=== PATIENT | female | born 2000 | race Caucasian/White ===

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

== ENCOUNTER 2022-11-07 10:33 | Emergency (ER) | payer OTHER, SELFPAY ==
[2022-11-07 10:52] VITALS: BP 99/66; PULSE 95; RESP 16; TEMP 37.8; O2SAT 99
--- NOTE | 2022-11-07 11:25 | ED.URI ---
HPI - URI/Sore Throat General Chief Complaint: Upper Respiratory Infection Stated Complaint: URI Source: patient and RN notes reviewed History of Present Illness HPI Narrative: 22 yo F presents to urgent care with complaints of a sore throat when she swallows and slight IRIZARRY. Pt reports some soreness to her anterior neck and points to lymphnode region. Pt states her symptoms started yesterday and she took an OTC cold/allergy medicine last night. Pt states she woke up this morning with swollen lips. Pt denies any fevers, chills, vomiting, chest pain, SOB, ear pain, or congestion. Pt states her mom has similiar symptoms at home and was dx with an ear infection yesterday. Pt denies any new meds, foods, or drinks. Denies any rash or hives or other oral swelling. Related Data Home Medications Medication Instructions Recorded Confirmed norethindrone 1 mg-ethinyl tablet 11/07/22 estradiol 35 mcg (21) tablet (Nortrel) Allergies Allergy/AdvReac Type Severity Reaction Status Date / Time No Known Allergies Allergy Mild Verified 11/07/22 10:50 Review of Systems Review of Systems: Pertinent positives and pertinent negatives per HPI. PMFSH Comments At the time of my signature, I reviewed and agree with the nursing past medical, surgical, social, and family history. There is no relevant family history pertinent to the patient complaint. Exam Narrative: GENERAL: This is a well-nourished, well-developed patient, in no apparent distress. HEAD: normocephalic, atraumatic. EYES: Sclera clear/white. Vision is grossly intact. EARS: External ears normal, auditory canals clear and without drainage, TMs normal without perforation. Hearing grossly intact. MOUTH: upper and lower lips mildly edematous. No tongue swelling. NOSE: External nose normal with no obvious nasal discharge, nares without redness, no rhinorrhea. THROAT: Mucous membranes moist, posterior pharynx clear. NECK: Neck supple, non-tender without lymphadenopathy, masses or thyromegaly. CARDIOVASCULAR: Regular rate and rhythm without murmurs, gallops, or rubs. RESPIRATORY: Clear to auscultation. Breath sounds equal bilaterally. No wheezes, rales, or rhonchi. SKIN: warm, intact with no suspicious lesions or rash, good texture and turgor. NEURO: awake, alert, and oriented to person, place and time. There were no obvious focal neurologic abnormalities. Course Course Level of Care: Express Care Visit Vital Signs Vital signs: Vital Signs Temperature 100.0 F H 11/07/22 10:52 Pulse Rate 95 11/07/22 10:52 Respiratory Rate 16 11/07/22 10:52 Blood Pressure 99/66 L 11/07/22 10:52 Pulse Oximetry 99 11/07/22 10:52 Oxygen Delivery Room Air 11/07/22 10:52 Temperature 100.0 F H 11/07/22 10:52 Pulse Rate 95 11/07/22 10:52 Respiratory Rate 16 11/07/22 10:52 Blood Pressure 99/66 L 11/07/22 10:52 Pulse Oximetry 99 11/07/22 10:52 Oxygen Delivery Room Air 11/07/22 10:52 reviewed. MDM - URI/Sore Throat MDM Narrative Medical decision making narrative: Viral illness may last between 7-21 days; antibiotics do not cure viral illness and are NOT recommended at this time. Also, recommend symptomatic treatment includes: rest, fluids, and increase humidity of the air at home. Recommend Acetaminophen as directed on the bottle to reduce fever, pain, headache. Please schedule a follow-up visit with your personal physician for further evaluation and treatment within 3-5days. If your symptoms persist, change or worsen significantly before you can contact your personal physician then please, without delay, go to the emergency department for further evaluation. if you develop any new or worsening symptoms go to the ER. Differential Diagnosis Differential diagnosis: Likely upper respiratory infection, otitis media and pharyngitis Lab Data Attestation: I reviewed the patient's lab results. Critical Care Time Critical Care Time Critical C
== END 2022-11-07 11:50 | disposition home or self-care (01) ==
PROVIDERS: Emergency Provider Nurse Practitioner Family
DX: B34.9 Viral infection, unspecified (principal); T78.40XA Allergy, unspecified, initial encounter
CPT/HCPCS: 87081; 87880; 99213; G0463

== ENCOUNTER 2023-02-03 11:26 | Emergency (ER) | payer OTHER, SELFPAY ==
[2023-02-03 11:37] VITALS: BP 123/79; PULSE 108; RESP 16; TEMP 37.3; O2SAT 100
--- NOTE | 2023-02-03 12:03 | ED.ALLEREA ---
HPI - Allergic Reaction General Chief complaint: Allergic Reaction Stated complaint: Headache/Lips Swelling/Sore Throat Time Seen by Provider: 02/03/23 12:03 Source: patient Mode of arrival: ambulatory Limitations: no limitations History of Present Illness HPI narrative: 22-year-old female presents with complaint of sore throat, headache, lip swelling since yesterday. Patient works at [employer]. reports no contact with any new food, chemicals. No new clothes or products for her. Reports similar symptoms in October. Took prednisone and symptoms resolved. Has not taken any Benadryl to treat lip swelling. No difficulty swallowing or breathing. Denies itching. Recently reports some seasonal allergy symptoms but otherwise fine. Does not take daily allergy medicines. All systems reviewed and negative except as noted above. Related Data Home Medications Medication Instructions Recorded Confirmed norethindrone 1 mg-ethinyl tablet 11/07/22 estradiol 35 mcg (21) tablet (Nortrel) Allergies Allergy/AdvReac Type Severity Reaction Status Date / Time No Known Allergies Allergy Mild Verified 02/03/23 11:37 Review of Systems Review of Systems: CONSTITUTIONAL: Denies fever, chills, or sweats. EYES: Denies visual changes, redness, or discharge. ENT: Denies rhinorrhea, congestion. Reports sore throat, lip swelling. Denies otalgia. CARDIOVASCULAR: Denies chest pain, palpitations, or edema. RESPIRATORY: Denies cough or dyspnea. GASTROINTESTINAL: Denies abdominal pain, nausea, vomiting, or diarrhea. GENITOURINARY: Denies dysuria or hematuria. SKIN: Denies rash or itching. MUSCULOSKELETAL: Denies back pain, joint pain, or myalgia. NEUROLOGIC: reports headache. Denies numbness, or weakness. PSYCHIATRIC: Denies anxiety or depression. All other systems reviewed are negative, except as documented in HPI. PMFSH Comments At time of signature, agree with nursing past medical, surgical, social and family history. There is no relevant family history pertinent to the presenting complaint. Exam Narrative: GENERAL: This is a well-nourished, well-developed patient, in no apparent distress. HEAD: normocephalic, atraumatic. EYES: PERRL. Sclera clear/white. Vision is grossly intact. EARS: External ears normal, auditory canals clear and without drainage, Fluid bilateral TMs without erythema or perforation. NOSE: External nose normal with no obvious nasal discharge, nares without redness, no rhinorrhea. THROAT: Mucous membranes moist, erythema to posterior pharynx with clear postnasal drainage. MOUTH: Upper and lower lip swollen Without rash. NECK: Neck supple, non-tender without lymphadenopathy, masses or thyromegaly. CARDIOVASCULAR: Regular rate and rhythm without murmurs, gallops, or rubs. RESPIRATORY: Clear to auscultation. Breath sounds equal bilaterally. No wheezes, rales, or rhonchi. SKIN: warm, Dry, intact with no suspicious lesions or rash, good texture and turgor. NEURO: awake, alert, and oriented to person, place and time. There were no obvious focal neurologic abnormalities. EXTREMITIES: No joint tenderness, effusion, or edema noted. Course Course Level of Care: Express Care Visit Vital Signs Vital signs: Vital Signs Temperature 37.3 C 02/03/23 11:37 Pulse Rate 108 H 02/03/23 11:37 Respiratory Rate 16 02/03/23 11:37 Blood Pressure 123/79 02/03/23 11:37 Pulse Oximetry 100 02/03/23 11:37 Oxygen Delivery Room Air 02/03/23 11:37 Temperature 37.3 C 02/03/23 11:37 Pulse Rate 108 H 02/03/23 11:37 Respiratory Rate 16 02/03/23 11:37 Blood Pressure 123/79 02/03/23 11:37 Pulse Oximetry 100 02/03/23 11:37 Oxygen Delivery Room Air 02/03/23 11:37 reviewed MDM - Allergic Reaction MDM Narrative Medical decision making narrative: Patient is aware of diagnosis, understands and agrees to treatment plan. Anticipatory guidance given. Patient agrees to follow-up
== END 2023-02-03 12:18 | disposition home or self-care (01) ==
PROVIDERS: Emergency Provider Nurse Practitioner Family
DX: J30.2 Other seasonal allergic rhinitis (principal); R22.0 Localized swelling, mass and lump, head
CPT/HCPCS: 87081; 87880; 99213; G0463

== ENCOUNTER 2023-05-23 08:26 | Emergency (ER) | payer OTHER, SELFPAY ==
--- NOTE | 2023-05-23 09:01 | ED.FEMALEGU ---
HPI - Female Genitourinary General Chief complaint: Urogenital-Female Stated complaint: Urinary issue Time Seen by Provider: 05/23/23 09:15 Source: patient Mode of arrival: ambulatory Limitations: no limitations History of Present Illness HPI Narrative: Gustavo is a 22-year-old female patient presenting to clinic today with complaints of burning and frequency with urination. She reports symptoms started on Wednesday and she took a azo in the improved and then last night she developed more symptoms so took another azo. Is concerned that she may have a urinary tract infection. She has no concern for any sexually transmitted infections. No concern for . Related Data Home Medications Medication Instructions Recorded Confirmed norethindrone 1 mg-ethinyl 1 tablet PO DAILY 11/07/22 05/23/23 estradiol 35 mcg (21) tablet (Nortrel) Allergies Allergy/AdvReac Type Severity Reaction Status Date / Time No Known Allergies Allergy Mild Verified 05/23/23 08:50 Review of Systems Review of Systems: Pertinent positives per HPI. Patient denies any fever, chills, rash, headache, visual changes, dizziness, cough, shortness of breath, chest pain, palpitations, nausea, vomiting, diarrhea, constipation, or any abdominal pain. PMFSH Social History Social History Smoking status: Never smoker Comments At the time of my signature, I reviewed and agree with the nursing past medical, surgical, social, and family history. There is no relevant family history pertinent to the patient complaint. Exam Narrative: General: Well-developed, well nourished, in no apparent distress. Head: Normocephalic, atraumatic. Cardio: Regular rate and rhythm, s1 and s2 normal, no murmur appreciated. Resp: Clear to auscultation bilaterally, no rhonchi, rales, wheezing or rubs. Abdomen: Soft, pliable, bowel sounds present in all quadrants, non-tender to palpation, no organomegly, no CVAT tenderness. Course Course Emergency Course: Portions of this record may have been created with voice recognition software. Level of Care: Express Care Visit Vital Signs Vital signs: Vital Signs Temperature 37.1 C 05/23/23 09:11 Pulse Rate 73 05/23/23 09:11 Respiratory Rate 18 05/23/23 09:11 Blood Pressure 112/69 05/23/23 09:11 Pulse Oximetry 100 05/23/23 09:11 Oxygen Delivery Room Air 05/23/23 09:11 Temperature 37.1 C 05/23/23 09:11 Pulse Rate 73 05/23/23 09:11 Respiratory Rate 18 05/23/23 09:11 Blood Pressure 112/69 05/23/23 09:11 Pulse Oximetry 100 05/23/23 09:11 Oxygen Delivery Room Air 05/23/23 09:11 Vital signs reviewed MDM - Female Genitourinary MDM Narrative Medical decision making narrative: At the time of visit patient is resting comfortably on the exam table. Patient appears to be nontoxic. UA is skewed due to azo. We will send urine for culture. Will place the patient on Macrobid as she is symptomatic at this time. Supportive measures were discussed with the patient and they voiced understanding discharge instructions and agrees to treatment plan. Return precautions reviewed Differential Diagnosis Differential diagnosis: Likely urinary tract infection and cystitis Lab Data Labs: Urine Glucose Trace Reference Range: Negative Urine Bilirubin Negative Reference Range: Negative Urine Ketone Negative Reference Range: Negative Urine Specific [place] 1.020 Reference Range:1.001-1.035 Urine Blood Trace Reference Range: Negative * * Urine pH
[2023-05-23 09:11] VITALS: BP 112/69; PULSE 73; RESP 18; TEMP 37.1; O2SAT 100
== END 2023-05-23 09:35 | disposition home or self-care (01) ==
PROVIDERS: Emergency Provider Nurse Practitioner Family; PCP Family Medicine
DX: N30.01 Acute cystitis with hematuria (principal)
CPT/HCPCS: 81003; 81025; 87086; 87088; 99213; G0463

== ENCOUNTER 2024-04-03 09:27 | Outpatient (CLI) | payer OTHER, SELFPAY ==
--- NOTE | ~2024-04-03 | XR_ITS ---
[id number] Ordering provider: Kenan Pereira, DC [facility] History: . Neck PAIN NO INJURY . Comparison: None. FINDINGS: VERTEBRAL BODIES: Normal height and alignment. No visible fracture or subluxation. The dens is intact . DISK SPACES: Well maintained. PARASPINOUS SOFT TISSUES: No prevertebral soft tissue swelling. IMPRESSION: No acute osseous abnormality cervical spine. Reviewed, dictated and finalized at location A. SCALER
--- NOTE | ~2024-04-03 | XR_ITS ---
3 VIEWS THORACIC SPINE Ordering provider: Kenan Pereira, DC [facility] History: . Neck and mid back pain no injury . Comparison: None. FINDINGS: VERTEBRAL BODIES: Normal height and alignment. No visible fracture or subluxation. Dextroscoliosis. DISK SPACES: Normal. SOFT TISSUES: Normal. IMPRESSION: No acute osseous abnormality of the thoracic spine. Reviewed, dictated and finalized at location A. [employer]ION MANAGER
== END 2024-04-03 09:28 | disposition home or self-care (01) ==
PROVIDERS: PCP Chiropractor; Visit Provider Chiropractor
DX: M54.2 Cervicalgia (principal); M54.9 Dorsalgia, unspecified
CPT/HCPCS: 72040; 72070